=== PATIENT | male | born 1960 | race American Indian/Alaskan Native ===

== ENCOUNTER 2021-10-24 19:38 | Emergency (ER) | payer SELFPAY ==
--- NOTE | 2021-10-24 20:05 | Emergency Department Report ---
ED Neuro Deficit HPI - General Stated Complaint: STROKE Time Seen by Provider: 10/24/21 20:04 - History of Present Illness Initial Comments: Patient presents with a loss of consciousness. He fainted. History is limited due to acuity of condition. History obtained by patient's who states that patient had a syncopal episode around 430 and he was hard to arouse. He was given Narcan in the ED EMS. He was more awake in the ED. He states he had a lot to "drink.: Patient currently denies having any pain - Related Data Allergies/Adverse Reactions: Allergies Allergy/AdvReac Type Severity Reaction Status Date / Time No Known Allergies Allergy Unverified 10/24/21 21:57 ED Review of Systems ROS: Stated complaint: STROKE Other details as noted in HPI Constitutional: denies: chills, fever Eyes: denies: eye pain, eye discharge, vision change ENT: denies: ear pain, throat pain Respiratory: denies: cough, shortness of breath, wheezing Cardiovascular: denies: chest pain, palpitations Endocrine: no symptoms reported Gastrointestinal: denies: abdominal pain, nausea, diarrhea Genitourinary: denies: urgency, dysuria Musculoskeletal: denies: back pain, joint swelling, arthralgia Skin: denies: rash, lesions Neurological: denies: headache, weakness, paresthesias Psychiatric: denies: anxiety, depression Hematological/Lymphatic: denies: easy bleeding, easy bruising ED Neuro Physical Exam - General General appearance: alert, in no apparent distress Suspected Stroke: Yes - Head Head exam: Present: atraumatic, normocephalic - Eye Eye exam: Present: normal appearance - ENT ENT exam: Present: mucous membranes moist - Neck Neck exam: Present: normal inspection - Respiratory Respiratory exam: Present: normal lung sounds bilaterally. Absent: respiratory distress - Cardiovascular Cardiovascular Exam: Present: regular rate, normal rhythm. Absent: systolic murmur, diastolic murmur, rubs, gallop - GI/Abdominal GI/Abdominal exam: Present: soft, normal bowel sounds - Rectal Rectal exam: Present: deferred - Extremities Exam Extremities exam: Present: normal inspection - Back Exam Back exam: Present: normal inspection - Neurological Exam Neurological exam: Present: alert, other - NIHSS Assessment Interval: Baseline 1a. Level of Consciousness: alert/keenly responsive 1b. LOC Questions: answers 1 question correctly 1c. LOC Commands: performs 1 task correctly 2. Best Gaze: normal 3. Visual: no visual loss 4. Facial Palsy: normal symmetrical movement 5b. Motor Arm Right: no drift 5a. Motor Arm Left: no drift 6a. Motor Leg Left: amputation/joint fusion 6b. Motor Leg Right: no drift 7. Limb Ataxia: absent 8. Sensory: normal 9. Best Language: mild/moderate aphasia 10. Dysarthria: mild/moderate dysarthria 11. Extinction/Inattention: no abnormality Total Score: 4 Stroke Severity: Minor Stroke - Psychiatric Psychiatric exam: Present: normal affect, normal mood - Skin Skin exam: Present: warm, dry, intact, normal color. Absent: rash ED Course Vital Signs 10/24/21 10/24/21 10/24/21 20:35 20:37 20:45 Temperature 98.5 F Pulse Rate 95 H 92 H Respiratory 12 14 15 Rate Blood Pressure 169/81 169/81 Blood Pressure 169/81 [Right] O2 Sat by Pulse 97 95 96 Oximetry 10/24/21 10/24/21 10/24/21 21:00 21:17 21:31 Temperature Pulse Rate 94 H 86 80 Respiratory 25 H 19 14 Rate Blood Pressure 169/81 162/81 162/81 Blood Pressure [Right] O2 Sat by Pulse 89 94 94 Oximetry 10/24/21 10/24/21 10/24/21 21:45 22:01 22:15 Temperature Pulse Rate 78 81 79 Respiratory 18 22 14 Rate Blood Pressure 167/85 144/85 162/81 Blood Pressure [Right] O2 Sat by Pulse 93 94 Oximetry 10/24/21 10/24/21 10/24/21 22:31 22:45 23:01 Temperature Pulse Rate 77 76 78 Respiratory 18 20 11 L Rate Blood Pressure 162/81 162/81 171/96 Blood Pressure [Right] O2 Sat by Pulse Oximetry 10/24/21 10/24/21 10/24/21 23:15 23:31 23:45 Temperature Pulse Rate 79 75 77 Respiratory 16 14 15 Rate Blood Pressure 171/96 144/85 144/85 Blood Pressure [Right] O2 Sat by Pulse Oximetry 10/25/21 00:01 Temperature Pulse Rate 77 Respiratory 15 Rate Blood Pressure 170/97 Blood Pressure [Right] O2 Sat by Pulse Oximetry - Consultations Consultation #1: 10/24/21 23:55 Spoke with neurologist she recommends that patient be admitted to the hospital - Lab Data Result diagrams: 10/24/21 Unknown 10/24/21 22:39 Lab Results 10/24/21 10/24/21 10/24/21 Range/Units 22:39 Unknown Unknown WBC 8.5 (4.5-11.0) K/mm3 RBC 4.45 (3.65-5.03) M/mm3 Hgb 14.2 (11.8-15.2) gm/dl Hct 41.4 (35.5-45.6) % MCV 93 (84-94) fl MCH 32 (28-32) pg MCHC 34 (32-34) % RDW 13.0 L (13.2-15.2) % Plt Count 298 (140-440) K/mm3 Lymph % (Auto) 37.8 H (13.4-35.0) % Dixie % (Auto) 7.3 (0.0-7.3) % Eos % (Auto) 0.7 (0.0-4.3) % Baso % (Auto) 0.4 (0.0-1.8) % Lymph # (Auto) 3.2 (1.2-5.4) K/mm3 Dixie # (Auto) 0.6 (0.0-0.8) K/mm3 Eos # (Auto) 0.1 (0.0-0.4) K/mm3 Baso # (Auto) 0.0 (0.0-0.1) K/mm3 Seg Neutrophils % 52.7 (40.0-70.0) % Seg Neutrophils # 4.4 (1.8-7.7) K/mm3 PT 13.2 (12.2-14.9) Sec. INR 0.91 (0.87-1.13) APTT 23.4 L (24.2-36.6) Sec. Thrombin Time 15.1 (15.1-19.6) Sec. Sodium 137 (137-145) mmol/L Potassium 4.1 (3.6-5.0) mmol/L Chloride 102.7 (98-107) mmol/L Carbon Dioxide 21 L (22-30) mmol/L Anion Gap 17 mmol/L BUN 15 (9-20) mg/dL Creatinine 0.9 (0.8-1.3) mg/dL Estimated GFR > 60 ml/min BUN/Creatinine Ratio 17 % Glucose 99 (75-100) mg/dL Calcium 9.5 (8.4-10.2) mg/dL Total Creatine Kinase (55-170) units/L CK-MB (CK-2) (0.0-4.0) ng/mL CK-MB (CK-2) Rel Index (0-4) Troponin T (0.00-0.029) ng/mL Plasma/Serum Alcohol (0-0.07) % 10/24/21 10/24/21 Range/Units Unknown Unknown WBC (4.5-11.0) K/mm3 RBC (3.65-5.03) M/mm3 Hgb (11.8-15.2) gm/dl Hct (35.5-45.6) % MCV (84-94) fl MCH (28-32) pg MCHC (32-34) % RDW (13.2-15.2) % Plt Count (140-440) K/mm3 Lymph % (Auto) (13.4-35.0) % Dixie % (Auto) (0.0-7.3) % Eos % (Auto) (0.0-4.3) % Baso % (Auto) (0.0-1.8) % Lymph # (Auto) (1.2-5.4) K/mm3 Dixie # (Auto) (0.0-0.8) K/mm3 Eos # (Auto) (0.0-0.4) K/mm3 Baso # (Auto) (0.0-0.1) K/mm3 Seg Neutrophils % (40.0-70.0) % Seg Neutrophils # (1.8-7.7) K/mm3 PT (12.2-14.9) Sec. INR (0.87-1.13) APTT (24.2-36.6) Sec. Thrombin Time (15.1-19.6) Sec. Sodium (137-145) mmol/L Potassium (3.6-5.0) mmol/L Chloride (98-107) mmol/L Carbon Dioxide (22-30) mmol/L Anion Gap mmol/L BUN (9-20) mg/dL Creatinine (0.8-1.3) mg/dL Estimated GFR ml/min BUN/Creatinine Ratio % Glucose (75-100) mg/dL Calcium (8.4-10.2) mg/dL Total Creatine Kinase 126 (55-170) units/L CK-MB (CK-2) 2.1 (0.0-4.0) ng/mL CK-MB (CK-2) Rel Index 1.6 (0-4) Troponin T < 0.010 (0.00-0.029) ng/mL Plasma/Serum Alcohol 0.01 (0-0.07) % - EKG Data -: EKG Interpreted by Me 10/24/21 23:51 EKG time 21: 36 rate 79 sinus rhythm signs of LVH impression abnormal EKG - Radiology Data Radiology results: report reviewed, image reviewed CT head: Shows no acute intercranial abnormality - Medical Decision Making Chief medical diagnosis: Ischemic stroke Differential medical diagnosis hemorrhagic stroke, electrolyte abnormality, drug intoxication, cardiogenic syncope I will get CT head CT angio neurology consult blood work ethanol level I will also give patient aspirin and will admit patient for stroke work-up - Core Measures AMI Core Measures Followed: Yes Measure Exclusions: not indicated - Thrombolytic Inclusion/Exclusion Thrombolytic Exclusion Criteria: Onset of Symptoms Unknown Thrombolytic Inclusion Criteria: Ischemic Stroke Onset< 3h Thrombolytic Contraindications: Rapidily Improving s/s Critical Care Time: No Critical care attestation.: If time is entered above; I have spent that time in minutes in the direct care of this critically ill patient, excluding procedure time. ED Disposition Clinical Impression: Ischemic stroke Disposition: 09 ADMITTED INPATIENT Is pt being admited?: Yes Does the pt Need Aspirin: No Condition: Stable Referrals: ANDRES NGO MD [Primary Care Provider] - 3-5 Days
[2021-10-24] MEDS ORDERED: LORazepam 2 MG/ML VIAL IV ONE (20:11)
[2021-10-24 20:16] LABS: Eosinophils # (Auto) 0.1 K/mm3 (0.0-0.4); Eosinophils % (Auto) 0.7 % (0.0-4.3); Monocytes # (Auto) 0.6 K/mm3 (0.0-0.8); Monocytes % (Auto) 7.3 % (0.0-7.3)
[2021-10-24 20:24] LABS: Creatine Kinase MB 2.1 ng/mL (0.0-4.0); INR 0.91 (0.87-1.13)
[2021-10-24 20:25] LABS: Partial Thromboplastin Time 23.4 Sec. (24.2-36.6); Thrombin Time 15.1 Sec. (15.1-19.6)
[2021-10-24 20:36] LABS: Basophils % (Auto) 0.4 % (0.0-1.8); Hematocrit 41.4 % (35.5-45.6); Hemoglobin 14.2 gm/dl (11.8-15.2); Lymphocytes # (Auto) 3.2 K/mm3 (1.2-5.4); Lymphocytes % (Auto) 37.8 % (13.4-35.0); Mean Corpuscular HGB Conc 34 % (32-34); Mean Corpuscular Volume 93 fl (84-94); Platelet Count 298 K/mm3 (140-440); Red Blood Count 4.45 M/mm3 (3.65-5.03)
--- NOTE | 2021-10-24 20:57 | Cat Scan Report ---
CT HEAD WITHOUT CONTRAST INDICATION / CLINICAL INFORMATION: CVA. TECHNIQUE: All CT scans at this location are performed using CT dose reduction for ALARA by means of automated exposure control. COMPARISON: None available. FINDINGS: Motion artifact limits this exam. BRAIN PARENCHYMA: No acute intracranial hemorrhage. No evidence of recent infarct. No mass effect or midline shift. VENTRICULAR SYSTEM/EXTRA-AXIAL SPACES: Ventricles are normal for age. No extra-axial fluid collection . ORBITS: Normal as visualized. SKELETAL SYSTEM/SOFT TISSUES: Normal bones and soft tissues. PARANASAL SINUSES/MASTOID AIR CELLS: No significant abnormality. ADDITIONAL FINDINGS: None. IMPRESSION: Limited exam due to motion artifact. No acute intracranial abnormality. Signer Name: Esvin Foley MD Signed: 10/24/2021 8:52 PM Workstation Name: [id number]
--- NOTE | 2021-10-24 22:19 | Cat Scan Report ---
CTA neck without and with intravenous contrast material CLINICAL HISTORY: stroke sx TECHNIQUE: Following acquisition of a timing bolus 0.625 mm thick contiguous axial scans were obtained from aort ic arch to the skull base during rapid bolus intravenous contrast infusion. In addition to evaluation of axial source images multiplanar reconstructions were produced and reviewed for this report. 3 ifeanyi ne MIP reconstructions were produced and reviewed. Contrast dose report: Contrast type and contrast volume administered not specified,, administered intravenously All CT examinations performed at this facility utilize modulated dose reduction, iterative reconstruc tion or weight-based dosing, as appropriate, to obtain a radiation dose which is as low as can reason ably be achieved. FINDINGS: Limitations: Contrast was administered via left upper extremity venous injection. 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 Suboptimal contrast opacification of these vessels is a limiting factor on this examination. Thoracic aorta:No abnormalities are identified along the course of the thoracic aorta..The origins of the great vessels have an unremarkable appearance in so far as they can be evaluated on this limited study.. Brachiocephalic artery, left common carotid artery origin and left subclavian artery all hav e an unremarkable appearance. Right carotid artery: Mild calcified atherosclerotic plaque is seen at the right carotid bulb without associated stenosis. No additional abnormalities are seen along the course of the right carotid brandon ry. Left carotid artery: Combination of mild calcified and soft plaque at the left carotid bulb extends i nto the proximal LICA. There is no indication of hemodynamically significant stenosis. Posterior circulation: Codominant vertebral arteries both contribute to the basilar artery origin. The degree of stenosis, if any, is determined utilizing NASCET like criteria. In this case there is no indication of hemodynamically significant stenosis at the carotid bifurcations or elsewhere. Evaluation of the nonvascular soft tissue structures reveal no significant abnormality. There is no i ndication of cervical lymphadenopathy. No abnormalities are seen along the course of the airway. Visu alized portions of the parotid glands and the submandibular salivary glands have a normal appearance. Thyroid gland appears enlarged but no focal thyroid lesions are identified.. Evaluation of the lung apices reveals no evidence of lung nodule or infiltrate. Evaluation of the cervical spine revealed no significant abnormalities. IMPRESSION: 1. No indication of hemodynamically significant stenosis at the carotid bifurcations or elsewhere. 2. Technically limited study as described above. CTA head with intravenous contrast CLINICAL HISTORY: stroke sx TECHNIQUE: 0.625 mm thick contiguous axial scans were obtained from the skull base to the skull vertex during r apid bolus administration of intravenous contrast material. Multiplanar reconstructions were produced in the coronal and sagittal planes. In addition 3 plane MIP instructions were produced and reviewed for this report. The axial source images and reconstructed images were reviewed for this report. CONTRAST DOSE REPORT: Blank: Contrast dose ml administered intravenously. All CT scans at this location are performed using CT dose reduction for ALARA by means of automated e xposure control. FINDINGS: Internal carotid arteries: Calcified atherosclerotic plaque is observed along the course of the bebo nous segments of both internal carotid artery there is no associated stenosis. Calcified plaque exten ds into the clinoid segments of both internal carotid arteries. Middle cerebral arteries: Irregularity of the distal third of the M1 segment of the left middle cereb ral artery indicates the presence of intercranial atherosclerotic disease. There is no indication of large vessel occlusion. Anterior cerebral arteries: Right A1 segment is hypoplastic. A large left A1 segment provides flow to both A2 segments of the anterior cerebral arteries. An intact anterior communicating artery is obser arina. Vertebral arteries: Both vertebral arteries contribute to the basilar artery origin. Basilar artery:Basilar artery has an unremarkable appearance. Posterior cerebral arteries: There is irregularity of contour of the P1 and P2 segments of both poste rior cerebral artery suggesting presence of intercranial atherosclerotic disease in this distribution . There is no indication of vessel occlusion. [place] of [place]:Not intact. see above. Dural sinuses: Dural venous sinuses are well demonstrated on this exam. There is no evidence of dural sinus thrombosis. IMPRESSION: 1. No indication of large vessel occlusion. 2. No evidence of intercranial atherosclerotic disease in the anterior and posterior circulation as d escribed above. Signer Name: Dima Mayorga MD Signed: 10/24/2021 10:15 PM Workstation Name: [id number]
--- NOTE | 2021-10-24 22:45 | Emergency Department Report ---
Blank Doc - Documentation Documentation: [facility] Consult Note # Demographics Consult Type: Acute Stroke Level 2 (4.5-24 hrs) Patient Location: Emergency Room First Name: Stephon Ledbetter Last Name: Jac Cheatham Date of : 1960 Age: 61 Gender: Male Facility: [facility] Time of Initial Page (Eastern Time): 10/24/2021, 19:49 Time of Return Call (Eastern Time): 10/24/2021, 19:49 # HPI History: 61 year old male dropped and fell/ had LOC. he was with family when this occurred. Pt received narcan. He is more awake, moving x4 without focal deficits but this occurred when patient got to ER not after getting Narcan Last Known Normal: unclear, between 3pm to 5 pm as per multiple sources # Scores Level of Consciousness 1a: [0] = Alert; keenly responsive LOC Questions 1b: [1] = Answers one correctly LOC Commands 1c: [1] = Performs one correctly Best Gaze 2: [0] = Normal Visual 3: [0] = No visual loss Facial Palsy 4: [0] = Normal symmetrical movements Motor Arm Left 5a: [0] = No drift Motor Arm Right 5b: [0] = No drift Motor Leg Left 6a: [0] = No drift Motor Leg Right 6b: [0] = No drift Limb Ataxia 7: [0] = Absent Sensory 8: [0] = Normal Best Language 9: [1] = Uqaz-yf-szeioscg aphasia Dysarthria 10: [1] = Helt-ca-mtundldf dysarthria Extinction and Inattention 11: [0] = No abnormality NIHSS Total: 4 # PMH-FH-SH Past Medical History: hypertension Social History: unclear # Data Head CT: no bleed preliminarily reviewed by me, please refer to radiology read for official reading # Assessment Impression: 61 year old with hx of htn presents with AMS and aphasia. No other focal findings noted on exam, intermittently following commands, cannot cross midline. Unclear time of onset. Recommend STAT CTA head and neck to rule out LVO. Urgent IR consult if noted to have LVO. # Plan Thrombolytic/Intervention: Possible IA candidate Thrombolytic Exclusion: unclear time of onset Possible IA Candidate: CTA pending Blood Pressure Management: IV fluid bolus Target Blood Pressure: SBP < 220 DBP < 105 Labs: Ammonia CBC comprehensive metabolic panel ESR hemoglobin A1c liver function tests lipid panel thiamine troponin TSH urine drug screen ua Imaging: (urgency: STAT): CT Head without contrast CT Angiogram Head and CT Angiogram Neck Imaging: (urgency: routine): MRI Brain without contrast Diagnostic Test: echo with bubble study Therapy/Evaluation: NPO until swallow evaluation PT/OT evaluation speech/swallow consultation Medication: aspirin 81 mg daily start statin with goal of LDL < 70 Other: If patient has any neurological deterioration please call me back immediately permissive hypertension telemetry monitoring seizure precautions would not pursue stroke work-up if MRI is negative I have discussed my recommendations with the referring provider Disposition: admit
--- NOTE | 2021-10-24 22:46 | Emergency Department Report ---
Blank Doc - Documentation Documentation: [facility] Consult Note # Demographics Consult Type: Acute Stroke Level 1 (0-4.5 hrs) Patient Location: Emergency Room First Name: Stephon Last Name: Jac Facility: [facility] Time of Initial Page (Eastern Time): 10/24/2021, 21:06 Time of Return Call (Eastern Time): 10/24/2021, 21:06 Phone Only Consult: Dr. Boyd had follow up call to confirm time of onset of patients symptoms. As per fimarlen, 4:30 is possible but she is not clear. Thus LKW unknown as this time. We confirmed patient does not meet tpa criteria due to this. Pending CTA head and neck for consideration of thromectomy.
[2021-10-24 23:18] LABS: BUN/Creatinine Ratio 17; Blood Urea Nitrogen 15 mg/dL (9-20); Calcium 9.5 mg/dL (8.4-10.2); Hemolysis Index 15
[2021-10-25 00:03] VITALS: BP 170/97
--- NOTE | 2021-10-26 13:40 | Electrocardiograph Report ---
[facility] Test Date: 2021-10-24 Test Time: 21:36:24 Pat Name: AUSTIN MENDEZ JR Department: Room: Gender: M [employer]: AMELIE : 1960 Requested By: GHANSHYAM DOVER Order Number: [id number] Reading MD: Katelyn Mccall Measurements Intervals [place] Rate: 79 P: 62 GA: 155 QRS: 13 QRSD: 95 T: 60 QT: 407 QTc: 466 Interpretive Statements Sinus rhythm LAE, consider biatrial enlargement Left ventricular hypertrophy No previous ECG available for comparison Electronically Signed On 10-26-2021 13:39:33 EDT by Katelyn Mccall
== END 2021-10-25 01:52 | disposition admitted as inpatient to this hospital (09) ==
LOC: ED 19:38
DX: I63.9 Cerebral infarction, unspecified (principal)
CPT/HCPCS: 36415; 70450; 70496; 70498; 80048; 82550; 82553; 84484; 85025; 85610; 85670; 85730; 93005; 96374; 99284; J2060; Q9967; 80320; G0480